=== PATIENT | male | born 1985 | race Caucasian/White ===

== ENCOUNTER 2016-03-13 06:03 | Emergency (ER) | payer OTHER ==
[~2016-03-13] VITALS: Ht 175.3 cm; Wt 70.4 kg
[~2016-03-13 06:03] MED LIST: NOHOMEMEDS
[2016-03-13] MEDS ORDERED: PERCOCET 5/31 TABLET PO (07:29)
[2016-03-13] MEDS ORDERED: MEDROL DOSEPAK4 MG PO (07:29)
[2016-03-13 07:44] VITALS: BP 130/85
== END 2016-03-13 07:44 | disposition home or self-care (01) ==
LOC: EME 06:03
DX: M54.41 Lumbago with sciatica, right side (principal); F17.200 Nicotine dependence, unspecified, uncomplicated
CPT/HCPCS: 72100; 99281; 99284; J1885; J7512

== ENCOUNTER 2016-09-30 13:11 | Emergency (ER) | payer OTHER ==
[~2016-09-30] VITALS: Ht 170.2 cm; Wt 70.6 kg
[~2016-09-30 13:11] MED LIST changes: +MEDROL DOSEPAK4 MG PO; +PERCOCET 5/31 TABLET PO
[2016-09-30 14:25] LABS: ADD MIUA? YES; BILIRUBIN NEGATIVE; BLOOD SMALL; COLOR YELLOW ((YELLOW)); GLUCOSE (STRIP) NEGATIVE; KETONES 5; LEUKOCYTES NEGATIVE; NITRITE NEGATIVE; PROTEIN (STRIP) 30; SPECIFIC GRAVITY 1.029 (1.000-1.030); UROBILINOGEN 0.2 MG/DL (0.2-1.0)
[2016-09-30 14:46] LABS: BACTERIA RARE /HPF; CALCIUM OXALATE CRYSTALS 2+ /HPF; EPITHELIAL CELLS RARE /HPF; HYALINE CASTS 0-5 /LPF; MUCUS 2+ /LPF; UCUL ADDED? NO; WHITE BLOOD CELLS 0-5 /HPF (0-5)
[2016-09-30 15:22] LABS: HEMATOCRIT 40.6 % (38.0-50.0); MCH 28.7 PG (29.0-34.0); MCHC 33.3 G/DL (30.0-36.0); MCV 86.4 FL (86-99); MEAN PLAT.VOLUME 9.9 uM^3 (9.0-12.4); PLATELET COUNT 276 K/uL (156-360); RBC DIS.WIDTH-CV 12.6 % (11.8-14.6); RBC DIS.WIDTH-SD 39.8 % (39-53); WHITE BLOOD COUNT 19.6 K/uL (4.1-10.2)
[2016-09-30 15:31] LABS: CHLORIDE 105 mEq/L (99-109); POTASSIUM 3.7 mEq/L (3.7-5.4); SODIUM 139 mEq/L (136-147)
[2016-09-30 15:33] LABS: GLUCOSE 94 mg/dL (70-99)
[2016-09-30 15:35] LABS: ANION GAP 10 MEQ/L (2-14); TOTAL BILIRUBIN 0.7 mg/dL (0.0-1.0)
[2016-09-30 15:37] LABS: ALKALINE PHOSPHATASE 83 IU/L (3-129); GFR ESTIMATE (CALCULATED) > 59 mL/min/
[2016-09-30 15:38] LABS: UREA NITROGEN (BUN) 17 mg/dL (9-23)
[2016-09-30] MEDS ORDERED: PENTASA500 MG PO (18:14)
[2016-09-30] MEDS ORDERED: FLAGYL500 MG PO (18:14)
[2016-09-30 18:50] VITALS: BP 126/78
== END 2016-09-30 18:51 | disposition home or self-care (01) ==
LOC: EME 13:11
DX: K50.00 Crohn's disease of small intestine without complications (principal); R31.9 Hematuria, unspecified; D72.829 Elevated white blood cell count, unspecified; F17.200 Nicotine dependence, unspecified, uncomplicated
CPT/HCPCS: 74176; 80053; 81003; 85027; 99281; 99284; J1885

== ENCOUNTER 2017-01-30 12:43 | Emergency (ER) | payer OTHER ==
[~2017-01-30] VITALS: Ht 175.3 cm; Wt 71.9 kg
[~2017-01-30 12:43] MED LIST changes: +FLAGYL500 MG PO; +PENTASA500 MG PO
[2017-01-30 13:36] LABS: MCH 30.1 PG (29.0-34.0); MCHC 34.4 G/DL (30.0-36.0); MCV 87.6 FL (86-99); MEAN PLAT.VOLUME 10.3 uM^3 (9.0-12.4); PLATELET COUNT 240 K/uL (156-360); RBC DIS.WIDTH-CV 12.3 % (11.8-14.6); RBC DIS.WIDTH-SD 39.9 % (39-53); RED BLOOD COUNT 4.91 M/uL (4.00-5.50); WHITE BLOOD COUNT 8.5 K/uL (4.1-10.2)
[2017-01-30 13:44] LABS: CHLORIDE 103 mEq/L (99-109); POTASSIUM 4.5 mEq/L (3.7-5.4); SODIUM 139 mEq/L (136-147)
[2017-01-30 13:46] LABS: GLUCOSE 101 mg/dL (70-99)
[2017-01-30 13:47] LABS: ANION GAP 11 MEQ/L (2-14)
[2017-01-30 13:50] LABS: GFR ESTIMATE (CALCULATED) > 59 mL/min/ (58.99-99999)
[2017-01-30 13:51] LABS: UREA NITROGEN (BUN) 19 mg/dL (9-23)
[2017-01-30 13:58] LABS: TROP-I INTERPRETATION NEGATIVE; TROPONIN-I < 0.01 ng/mL (0.0-0.30)
[2017-01-30 15:03] VITALS: BP 124/84
== END 2017-01-30 15:04 | disposition home or self-care (01) ==
LOC: EME 12:43
DX: R07.89 Other chest pain (principal); K50.90 Crohn's disease, unspecified, without complications; Z72.0 Tobacco use; Z88.0 Allergy status to penicillin
CPT/HCPCS: 71020; 80048; 84484; 85027; 93005; 99281; 99284